=== PATIENT | male | born 1990 | race Caucasian/White ===

== ENCOUNTER 2022-02-07 13:09 | Emergency (ER) | payer OTHER ==
[2022-02-07] MEDS ORDERED: predniSONE 20 MG Tab PO ONE (14:10)
[2022-02-07] MEDS ORDERED: predniSONE 20 MG Tab ONE (14:40)
[2022-02-08] MEDS ORDERED: predniSONE 20 MG Tab PO ONE (14:14)
== END 2022-02-07 14:50 | disposition home or self-care (01) ==
LOC: FB.ED 13:09
DX: L50.9 Urticaria, unspecified (principal); Z79.899 Other long term (current) drug therapy
CPT/HCPCS: 99282; J7512

== ENCOUNTER 2024-09-11 06:12 | Day surgery (SDC) | payer BC, OTHER ==
[2024-09-11] MEDS ORDERED: Propofol 200 MG/20 ML SDV IV ONE (06:13)
[2024-09-11] MEDS ORDERED: Midazolam 1 MG/ML 2 ML SDV IV ONE (06:13)
[2024-09-11] MEDS ORDERED: Ketamine 500 mg/10 ML MDV IV ONE (06:13)
[2024-09-11] MEDS ORDERED: Lidocaine 2% 100 MG/5 ML Syringe IVPUSH ONE (06:13)
[2024-09-11] MEDS ORDERED: Sodium Chloride 0.9% 10 ML Syringe FLUSH PRN (06:15)
[2024-09-11] MEDS: Simethicone Drops 40 MG/0.6 ML 30 ML Bottle ONE (07:28)
[2024-09-11] MEDS: Lactated Ringers 1,000 ML IV SCH (07:38)
== END 2024-09-11 08:51 | disposition home or self-care (01) ==
LOC: FB.SDS 06:12
PROVIDERS: ATTEND Surgery
DX: K62.5 Hemorrhage of anus and rectum (principal); K62.89 Other specified diseases of anus and rectum; E66.9 Obesity, unspecified; Z68.32 Body mass index [BMI] 32.0-32.9, adult; Z79.899 Other long term (current) drug therapy
CPT/HCPCS: 00811; A9270-GY; J2250; J2704; J3490; J7120